=== PATIENT | female | born 1955 | race Caucasian/White ===

== ENCOUNTER 2024-09-19 15:14 | Emergency (ER) | payer MEDICARE, SELFPAY ==
[2024-09-19 15:17] VITALS: BP 151/83
[2024-09-19 15:44] LABS: % Basophils 0.3 % (0-2); % Immature Granulocytes 0.2 % (0-0.5); % Lymphocytes 21.1 % (20.5-51.1); % Neutrophils 68.4 % (42.2-75.2); Absolute Lymphocytes 1.3 10^3/uL (1.2-3.4); Absolute Monocytes 0.6 10^3/uL (0.1-0.6); Absolute Neutrophils 4.3 10^3/uL (1.4-6.5); Hematocrit 39.8 % (37.0-47.0); Hemoglobin 13.6 g/dL (12.0-16.0); Mean Corp Hgb Conc. 34.2 g/dL (33.0-37.0); Mean Corpuscular Hgb 31.6 pg (27.0-31.0); Mean Corpuscular Volume 92.6 fL (81.0-99.0); Mean Platelet Volume 9.7 fL (7.4-10.4); Nucleated Red Blood Cells % 0 %; Platelet Count 257 10^3/uL (130-400); Red Cell Dist. Width 13.4 % (11.5-14.5); White Blood Cell Count 6.3 10^3/uL (4.8-10.8)
--- NOTE | 2024-09-19 15:47 | ED.GENMED ---
History of Present Illness
General
Chief Complaint: Anxiety
Time Seen by Provider: 09/19/24 15:46
History of Present Illness
History of Present Illness:
69-year-old female with history of anxiety presenting to the emergency department for depressive type symptoms. Patient reports that she has been feeling very sad, has not wanted to get out of bed. She takes Ativan for her anxiety and notes that
it is not working. Denies thoughts of wanting to hurt herself or others. Denies acute medical complaint such as chest pain, difficulty breathing, abdominal pain. She has an appoint with a psychiatrist on Monday. She talk to her primary who
advised that she come to the hospital.
Phy Exam
Physical Exam
Physical Exam:
General: Well-appearing, no clinical signs of dehydration, nontoxic and in no acute distress
HEENT: protecting airway
Neck: appears supple
CV: Normal heart rate
Resp: No accessory muscle use, no increased work of breathing
Abd: no distension
Extremities: No deformities, no swelling
Neuro: alert, no focal neurologic deficit
: deferred
Rectal: deferred
Psych: Depressed affect
Skin: Intact
Course
Orders/Labs/Results
Orders:
Orders
09/19/24 15:33
Complete Blood Count/With Diff Urgent
Comprehensive Metabolic Panel Urgent
09/19/24 15:47
Crisis Consult Urgent
Reason for Consult: anxiety
09/19/24 16:08
Electrocardiogram (*1) Urgent
Reason for Study: Other
Other Reason for Exam: anxiety
EKG- Treatment ONCE
Abnormal Lab Results
09/19/24
15:33
MCH 31.6 H pg
(27.0-31.0)
Monocytes % 10.0 H %
(1.7-9.3)
Glucose 126 H mg/dl
(70-99)
09/19/24 15:33
09/19/24 15:33
Vital Signs
Initial and Last Documented VS:
Initial Vital Signs
Temp Pulse Resp BP Pulse Ox
98.0 F 92 16 151/83 98
09/19/24 15:17 09/19/24 15:17 09/19/24 15:17 09/19/24 15:17 09/19/24 15:17
Last Documented Vital Signs
Temp Pulse Resp BP Pulse Ox
98.0 F 71 16 122/85 100
09/19/24 15:17 09/19/24 16:05 09/19/24 16:05 09/19/24 16:05 09/19/24 16:05
MDM/Problems Addressed
MDM/Problems Addressed:
69-year-old female with history of anxiety presenting for depressive type symptoms. Vitals are significant for mild hypertension.
On exam, patient is resting comfortably, no acute distress. She does have a depressed affect. However does not appear to be a threat to herself or others. She is requesting increased dosage of her benzodiazepine. Explained that this will not help
with depression, will only increase somnolence and continue to treat anxiety. Will discuss with crisis, however patient has an appointment with psychiatry on Monday.
16:50 - Patient had screening laboratory analysis which is unremarkable. Patient seen by crisis, communicated same plan, to follow-up with psychiatry, also provide additional resources. No utility in increasing benzodiazepine at this time. Feel
stable for discharge. Return precautions discussed
*Critical Care Note
Total Time (30-74mins, 75-104mins- exclusive of procedures): Not Applicable
ED Attending Note
-
Portions of this chart may have been created with voice recognition software.� Occasional wrong word or��sound alike� substitutions may have occurred due to the inherent limitations of voice recognition software.
Discharge Plan
Departure
Patient Disposition: Home (Routine Discharge)
Date of Disposition: 09/19/24
Time of Disposition: 16:50
Patient with high blood pressure during this ER visit?: No
Condition: Good
Discharge Problem:
Depression
Instructions: Depression, Adult (DC)
Activity Restrictions/Additional Instructions:
You were seen in the emergency department for depression
Were seen by crisis and advised to follow-up with your psychiatrist on Monday as scheduled.
Please follow-up closely with your primary care physician.
Return to the emergency department for any worsening of your symptoms or any development of thoughts of wanting to hurt yourself or others, or any development of chest pain, difficulty breathing, abdominal pain with persistent vomiting and inability
to tolerate food or liquid by mouth (concern for dehydration), weakness, headache or confusion, fever greater than 100.4, or any additional symptoms that are concerning to you.
Thank you for choosing [facility].
Interventions
Interventions:
*Risk Screen - Suicide Last Done: 09/19/24 16:05
*General Assessment Last Done: 09/19/24 16:05
*Neglect/Abuse Screening Last Done: 09/19/24 16:05
*ED- Fall Risk Assessment Last Done: 09/19/24 16:05
*ED COVID-19 Vaccine History Last Done: 09/19/24 16:05
*Nursing Disposition Last Done: 09/19/24 16:59
ED-Psychological Assessment Last Done: 09/19/24 16:05
Discharge Date and Time
Discharge Date/Time: 09/19/24 17:00
Print Language: TURKISH
[2024-09-19 15:57] LABS: ALT (SGPT) 15 U/L (0-35); AST (SGOT) 16 U/L (14-36); Alkaline Phosphatase 61 U/L (38-126); Blood Urea Nitrogen 15 mg/dl (7-17); Calcium 9.6 mg/dl (8.4-10.2); Carbon Dioxide 26 mmol/L (22-30); Chloride 105 mmol/L (98-107); Glucose 126 mg/dl (70-99); Potassium 3.8 mmol/L (3.5-5.1); Sodium 138 mmol/L (135-145); Total Bilirubin 0.9 mg/dl (0.2-1.3); Total Protein 6.6 g/dl (6.3-8.2); eGFR > 60.00
--- NOTE | 2024-09-19 16:00 | EDRN ---
Dr. Corea in to see pt.
[2024-09-19 16:05] VITALS: BP 122/85
--- NOTE | 2024-09-19 16:27 | EDRN ---
Crisis states that they are unable to assist pt in getting meds she would like for her depression. Dr. Corea had informed pt the same. Pt is declining any other mental health care and to follow up w/ her outpt mental health.
[2024-09-19 16:49] VITALS: BMI 18.5
--- NOTE | 2024-09-19 16:57 | EDRN ---
Pt walked out saying, 'they didn't do anything for me.' Pt was informed she needs to follow up w/ her psychiatrist for medications as pt needs to be followed after starting or increasing medications.
== END 2024-09-19 17:00 | disposition home or self-care (01) ==
LOC: EMR 15:14
PROVIDERS: Emergency Medicine; EMERGENCY PHYSICIAN Student in an Organized Health Care Education/Training Program
DX: F32.A Depression, unspecified (principal); F41.9 Anxiety disorder, unspecified
CPT/HCPCS: 99283; 80053; 85025